=== PATIENT | female | born 1980 | race Caucasian/White ===

== ENCOUNTER → 2016-10-05 | Outpatient (REF) | payer BC ==
[~2016-10-05] MED LIST: ACET50TA PO; BACL10TA2; BIRTH CONTROL; CETI10TA; COLA100C3 PO; IBUP-1114 PO; IBUP100SUS PO; IBUP800T; MOM30SS PO; PERC5TAB6 PO; PERCOCET PO; PREN27TA3 PO; THERGRAN; TRAM50TA2
== END ==
LOC: M LAB REF 13:16
PROVIDERS: ATTEND Advanced Practice Midwife
DX: Z12.4 Encounter for screening for malignant neoplasm of cervix (principal)

== ENCOUNTER → 2020-09-28 | Outpatient (REF) | payer BC ==
[~2020-09-28] MED LIST changes: -ACET50TA PO; -COLA100C3 PO; +COLA100C5 PO; +IBUP100S44 PO; -IBUP100SUS PO; +MAPA500T17 PO; +OXYC1TAB23 PO; +PERC5TAB12 PO; -PERC5TAB6 PO; -PERCOCET PO
== END ==
LOC: M SFHCWAGY 10:08
PROVIDERS: ATTEND Advanced Practice Midwife
DX: Z12.4 Encounter for screening for malignant neoplasm of cervix (principal)

== ENCOUNTER → 2020-10-05 | Outpatient (CLI) | payer BC ==
--- NOTE | 2020-10-05 10:30 | REP ---
INDICATION: LOWER LUMBAR/PELVIC PAIN AFTER TRAUMA FROM BENDING X3MONS COMPARISON: None. TECHNIQUE: Single AP view of the pelvis. FINDINGS: Single AP view of the pelvis demonstrates normal osseous structures, joint spaces, and surrounding soft tissues. No evidence for acute or healed injury. IMPRESSION: Normal pelvic radiograph. <Electronically signed by Pramod Antunez > 10/05/20 1027
--- NOTE | 2020-10-05 10:30 | REP ---
INDICATION: LOWER LUMBAR/PELVIC PAIN AFTER TRAUMA FROM BENDING X3MONS COMPARISON: None. TECHNIQUE: AP, lateral, flexion/extension, bilateral oblique, and coned-down views. FINDINGS: Alignment and lordosis is maintained. The vertebral bodies including transverse process and spinous processes are intact and normal. There is no evidence for acute fracture / compression injury or subluxation. No evidence for spondylolysis or spondylolisthesis. No significant degenerative change is noted. IMPRESSION: Normal lumbosacral spine radiograph series. <Electronically signed by Pramod Antunez > 10/05/20 1024
== END ==
LOC: M WUC 09:57
PROVIDERS: ATTEND Physician Assistant
DX: M54.5 Low back pain (principal)

== ENCOUNTER → 2020-10-05 | Outpatient (CLI) | payer BC ==
[2020-10-05 11:56] LABS: BASO # 0.1 10^3/uL (0.0-0.2); BASO % 1.1 % (0.0-1.0); EOS % 0.4 % (0.0-3.0); HEMATOCRIT 41.5 % (36.0-47.0); HEMOGLOBIN 13.3 g/dl (12.0-15.5); LYMPH # 1.4 10^3/uL (1.5-5.0); LYMPH % 31.2 % (24.0-44.0); MEAN CORPUSCULAR VOLUME 93.7 fl (80.0-96.0); MONO # 0.3 10^3/uL (0.0-0.8); MONO % 7.4 % (2.0-8.0); NEUTROPHILS # 2.7 10^3/uL (1.5-8.5); NEUTROPHILS % 59.5 % (36.0-66.0); PLATELET COUNT, AUTOMATED 372 10^3/uL (150-450); RED BLOOD COUNT 4.43 10^6/uL (4.00-5.40); WHITE BLOOD COUNT 4.6 10^3/uL (4.0-10.0)
[2020-10-05 12:32] LABS: ALBUMIN 3.6 GM/DL (3.2-5.2); ALT/SGPT 17 U/L (12-78); BILIRUBIN,TOTAL 0.4 MG/DL (0.2-1.0); BLOOD UREA NITROGEN 16 MG/DL (7-18); CALCIUM LEVEL 8.7 MG/DL (8.5-10.1); CARBON DIOXIDE LEVEL 27 MEQ/L (21-32); CHLORIDE LEVEL 107 MEQ/L (98-107); CHOLESTEROL LEVEL 167 MG/DL (<200); CHOLESTEROL RISK RATIO 2.455 (<5); CREATININE FOR GFR 0.82 MG/DL (0.55-1.30); FREE T4 0.85 NG/DL (0.76-1.46); GLOMERULAR FILTRATION RATE > 60.0 (>60); GLUCOSE, FASTING 76 MG/DL (70-100); HDL CHOLESTEROL 68 MG/DL (>40); LDL CHOLESTEROL 89 MG/DL (<100); NON-HDL-C 99 MG/DL; POTASSIUM SERUM 4.5 MEQ/L (3.5-5.1); SODIUM LEVEL 140 MEQ/L (136-145); THYROID STIMULATING HORMONE 0.667 uIU/ML (0.358-3.740); TOTAL PROTEIN 6.8 GM/DL (6.4-8.2); TRIGLYCERIDES LEVEL 49 MG/DL (<150)
== END ==
LOC: M WUC 09:54
PROVIDERS: ATTEND Family Medicine
DX: Z13.29 Encounter for screening for other suspected endocrine disorder (principal); Z13.220 Encounter for screening for lipoid disorders; Z13.0 Encounter for screening for diseases of the blood and blood-forming organs and certain disorders involving the immune mechanism

== ENCOUNTER → 2024-01-16 | Outpatient (CLI) | payer BC | LOC: M WUC 10:32 | PROVIDERS: ATTEND Physician Assistant | DX: M25.531 Pain in right wrist (principal) ==